=== PATIENT | female | born 1955 | race Caucasian/White ===

== ENCOUNTER 2023-02-20 10:25 | Outpatient (OUT) | payer MEDICARE, OTHER, SELFPAY ==
--- NOTE | 2023-02-20 10:26 | VEIN_ITS ---
Patient: MARY NAM Exam Date: 02/20/2023 : 1955 Gender:F Ordering : DR CATHERINE DAVIDSON M.D. Admission #: [id number] Family : Order #: [id number] CLICK HERE TO VIEW EXAM RADIOLOGY REPORT PROCEDURE: VC EXT VENOUS REFLUX LANNY LMTD COMPARISON: None. INDICATIONS: I83.813 Pain due to varicose veins of bilateral leg veins TECHNIQUE: Duplex imaging of the lower extremity to assess the deep and superficial venous system for the presence of deep or superficial venous incompetence and to document the location and severity of disease. The study includes evaluation of the great saphenous vein (GSV), anterior accessory saphenous vein (AASV) and small saphenous vein (SSV). Patient scanned in reverse Trendelenburg and standing. FINDINGS: RIGHT LOWER EXTREMIT GSV: Diam (mm) Reflux/ Time (sec) Proximal Thigh N/A Mid Thigh N/A Distal Thigh N/A Prox Calf N/A Mid Calf N/A Saphenopopliteal Junction Reflux: Thigh Extensionmm No SSV: Proximal Calf 1.4 No Mid Calf 1.2 No AASV: Proximal Thigh 3.3 No Mid Thigh 2.6 No Distal Thigh Thrombi: No acute or chronic thrombus visualized Compressibility: Normal Flow: Normal Preforator: Mid/med calf 2.2mm with 0s reflux. Tech Note: GSV was ablated at [facility] in 2019. No patent varicose veins are present. The distal portion of the GSV is patent and measures 2.9mm at greatest diameter. LEFT LOWER EXTREMITY: Saphenofemoral Junction Reflux: mm sec GSV: Diam (mm) Reflux/Time (sec) Proximal Thigh No Mid Thigh Distal Thigh 2.3 Yes 0.4 Prox Calf 3.1 No Mid Calf 2.2 No Saphenopopliteal Junction Relux: 2.6 mm No SSV: Proximal Calf 2.2 No Mid Calf 2.2 No AASV: Not present Proximal Thigh Mid Thigh Distal Thigh Thrombi: No acute and chronic thrombus visualized Compressibility: Normal Flow: Normal Therapeutic Specialist: No perforators visualized Tech Note: GSV was ablated at [facility] in 2019. The GSV is patent from distal thigh to mid calf. Patent varicose vein mid/med calf 1.9mm with 0s reflux. CONCLUSION: 1. Prior ablation of great saphenous vein bilaterally. 2. No abnormally dilated or incompetent superficial veins within the right or left lower extremity. Dictated by: Rony Love M.D. on 02/21/2023 at 13:48 Approved by: Rony Love M.D. on 02/21/2023 at 13:49
== END 2023-02-20 10:26 | disposition home or self-care (01) ==
LOC: VC 10:25
PROVIDERS: PCP Radiology Diagnostic Radiology; Visit Provider Radiology Diagnostic Radiology
DX: I83.813 Varicose veins of bilateral lower extremities with pain (principal); Z98.890 Other specified postprocedural states
CPT/HCPCS: 93970

== ENCOUNTER 2024-06-05 12:51 | Outpatient (OUT) | payer MEDICARE, OTHER, SELFPAY ==
--- NOTE | 2024-06-05 13:00 | US_ITS ---
[address] [address] Patient Name: MARY NAM MRN: [id number] date: 1955 Sex: F Assigned Patient Location: Current Patient Location: Accession/Order Number: [id number] Exam Date: 06/05/2024 13:02 Report Date: 06/06/2024 05:41 At the request of: HARSHAD PINK Procedure: US pelvis w/ transvaginal EXAMINATION: US pelvis w/ transvaginal HISTORY: Pelvic Pain R10.2 COMPARISON: No relevant comparison available. TECHNIQUE: Transabdominal and/or transvaginal sonographic examination was performed as indicated by examination type. FINDINGS: UTERUS: Heterogeneous echotexture throughout the myometrium. 7 mm calcification within anterior fundal myometrium. Prominent parauterine vessels within left adnexa.. Uterus size: 7.7 x 5.4 x 3.8 cm ENDOMETRIUM: Normal homogeneous appearance. Endometrial thickness: 4 mm RIGHT OVARY: Normal size and appearance. Duplex Doppler demonstrates normal waveform and flow; resistive index 0.4. Ovary size: 1.6 x 1.8 x 2.0 cm LEFT OVARY: Contains a 2.9 cm benign-appearing cyst. Duplex Doppler demonstrates normal waveform and flow; resistive index 0.6. Ovary size: 3.5 x 2.7 x 1.8 cm CUL-DE-SAC: Unremarkable. No significant free fluid. BLADDER: Unremarkable. OTHER: None. US/US pelvis w/ transvaginal IMPRESSION: 1. Left ovary contains a 2.9 cm benign-appearing cyst. 2. Prominent left parauterine vessels; pelvic vascular congestion? 3. Heterogeneous uterine myometrium, but no suspicious or acute abnormality. Electronically authenticated by: NAYA CAMPUZANO Date: 06/06/2024 05:41
== END 2024-06-05 12:52 | disposition home or self-care (01) ==
LOC: US 12:53
PROVIDERS: PCP Radiology Diagnostic Radiology; Visit Provider Family Medicine
DX: R10.2 Pelvic and perineal pain (principal); N83.292 Other ovarian cyst, left side
CPT/HCPCS: 76830; 76856